=== PATIENT | female | born 1950 | race Caucasian/White ===

== ENCOUNTER 2022-10-26 13:03 | Emergency (ER) | payer MEDICARE | END 2022-10-26 13:56 | disposition home or self-care (01) | LOC: JP.ED 13:03 | DX: L23.89 Allergic contact dermatitis due to other agents (principal); E03.9 Hypothyroidism, unspecified; E78.00 Pure hypercholesterolemia, unspecified; Z79.899 Other long term (current) drug therapy; Z88.8 Allergy status to other drugs, medicaments and biological substances | CPT/HCPCS: 99282 ==